=== PATIENT | male | born 1975 | race Caucasian/White ===

== ENCOUNTER 2016-11-11 15:21 | Emergency (ER) | payer OTHER ==
--- NOTE | 2016-11-11 15:57 | EDM.PDOC ---
ED HPI GENERAL MEDICAL PROBLEM - General Chief Complaint: Back Pain or Injury Stated Complaint: Chronic pain Time Seen by Provider: 11/11/16 15:40 Source of Information: Reports: Patient, RN notes reviewed History Limitations: Reports: No limitations - History of Present Illness INITIAL COMMENTS - FREE TEXT/NARRATIVE: 41 year old male presents to the ED today for help with his chronic back pain and right shoulder pain. He says his flushed his Tramadol down the drain. He has been taking Tramadol for years to help manage his chronic pain. He says he does well on this and is able to function. He admits to history of opiate abuse and sees Shaun Bonner. He says last week he was prescribed hydrocodone. His found it before he was able to take any and subsequently flushed the Tramadol and hydrocodone. He decided to change to a new PCP, Dr. Mcguire and saw him in the clinic today. The patient says that Dr. Mcguire is requesting his old records before refilling his medication which is why he is presenting to the ED today. He is hoping for a prescription for Tramadol to get him by until he can follow-up with Dr. Mcguire. Treatments EDITORIAL DIRECTOR: Reports: Other (see below) Other Treatments EDITORIAL DIRECTOR: ibuprofen and Naproxen Back Pain Score (Numeric/FACES): 9 - Related Data Allergies Allergy/AdvReac Type Severity Reaction Status Date / Time diphenhydramine HCl AdvReac Anxiety Verified 11/11/16 15:27 [From Benadryl] Home Meds: Home Meds Sertraline [Zoloft] 100 mg PO DAILY 04/17/16 [History] ClonazePAM [KlonoPIN] 2 tab PO TID PRN 08/11/16 [History] traMADol [Ultram] 50 mg PO QID PRN 08/11/16 [History] traMADol [Ultram] 1 - 2 tab PO Q8H PRN #20 tablet 11/11/16 [Rx] Past Medical History - Past Health History Medical/Surgical History: Denies Medical/Surgical History Cardiovascular History: Reports: Hypertension Musculoskeletal History: Reports: Back pain, chronic Psychiatric History: Reports: Anxiety, Depression, Panic attack, PTSD - Past Surgical History Male Surgical History: Reports: Vasectomy Other Musculoskeletal Surgeries/Procedures:: ORIF right wrist Social & Family History - Tobacco Use Smoking Status *Q: Current Every Day Smoker Years of Tobacco use: 4 Packs/Tins Daily: 0.1 Used Tobacco, but Quit: No Month Tobacco Last Used: 1 Second Hand Smoke Exposure: No - Caffeine Use Caffeine Use: Reports: None - Alcohol Use Days Per Week of Alcohol Use: 7 Number of Drinks Per Day: 10 Total Drinks Per Week: 70 - Recreational Drug Use Recreational Drug Use: No Drug Use in Last 12 Months: Yes Recreational Drug Type: Reports: Marijuana/Hashish Other Recreational Drug Type: patient has hx of opiod addiction Recreational Drug Use Frequency: Daily ED ROS GENERAL - Review of Systems Review Of Systems: See Below Constitutional: Reports: no symptoms. Denies: fever, chills Respiratory: Reports: No Symptoms. Denies: Shortness of Breath Cardiovascular: Reports: No symptoms. Denies: Chest pain GI/Abdominal: Reports: No symptoms. Denies: Abdominal pain, Nausea, Vomiting Musculoskeletal: Reports: shoulder pain, back pain ED EXAM, GENERAL - Physical Exam Exam: See Below Exam Limited By: No limitations General Appearance: alert, WD/WN, no apparent distress, other (tearful) Respiratory/Chest: no respiratory distress, lungs clear Cardiovascular: regular rate, rhythm Neurological: alert, oriented, normal cognition, normal gait Psychiatric: normal affect, tearful Course - Vital Signs Last Recorded V/S: Last Vital Signs Temp 98.5 F 11/11/16 15:28 Pulse 90 11/11/16 16:05 Resp 16 11/11/16 16:05 BP 127/96 H 11/11/16 16:05 Pulse Ox 99 11/11/16 16:05 - Re-Assessments/Exams Free Text/Narrative Re-Assessment/Exam: Patient will be provided with a small prescription for Tramadol. I explained that this is a one time occurrence and that we will not continue to fill his pain medication out of the ED. He is understandable and agreeable. Discharge instructions as documented. Departure - Departure Time of Disposition: 15:55 Disposition: Home, Self-Care 01 Condition: good Clinical Impression: Chronic pain Qualifiers: Chronic pain type: chronic pain syndrome Qualified Code(s): G89.4 - Chronic pain syndrome Prescriptions: traMADol [Ultram] 1 - 2 tab PO Q8H PRN #20 tablet PRN Reason: Pain Instructions: Chronic Pain Referrals: PCP,None [Ordering Only Provider] - Forms: ED Department Discharge Additional Instructions: Follow-up with Dr. Mcguire on Tuesday Tramadol 1-2 tabs every 8 hours as needed Return to ER with any additional concerns
[2016-11-11 16:08] VITALS: BP 127/96
== END 2016-11-11 16:05 | disposition home or self-care (01) ==
LOC: JD.ED 15:21
DX: G89.4 Chronic pain syndrome (principal); M54.9 Dorsalgia, unspecified; M25.511 Pain in right shoulder; I10 Essential (primary) hypertension; F41.9 Anxiety disorder, unspecified; F32.9 Major depressive disorder, single episode, unspecified; F17.210 Nicotine dependence, cigarettes, uncomplicated; Z79.899 Other long term (current) drug therapy; Z88.8 Allergy status to other drugs, medicaments and biological substances
CPT/HCPCS: 99283